=== PATIENT | female | born 1965 | race African-American/Black ===

== ENCOUNTER 2020-09-23 18:19 | Inpatient (IN) | payer OTHER ==
[~2020-09-23] VITALS: Ht 162.6 cm; Wt 53.1 kg
[2020-09-23 18:19] VITALS: BP 161/107
[2020-09-23 18:48] LABS: ABSOLUTE NEUTROPHILS 4.3 thou/uL (1.4-8.2); BASOPHILS 1.3 % (0.0-2.0); EOSINOPHILS 1.1 % (0.0-3.0); HEMOGLOBIN 14.8 gm/dL (12.0-15.0); LYMPHOCYTES 39.5 % (24.0-44.0); MCH 32.4 pg (26.0-34.0); MCHC 34.5 g/dL (28.0-37.0); MCV 93.9 fL (80.0-100.0); MONOCYTES 8.3 % (1.0-8.0); PLATELET COUNT 220 thou/uL (150-400); POLYS 49.8 % (36.0-66.0); RBC 4.58 mil/uL (4.20-5.00); RDW 13.9 % (10.5-14.5); WBC 8.7 thou/uL (4.0-11.0)
[2020-09-23 18:57] LABS: ANION GAP 12 mmol/L (7-16); BUN 16 mg/dL (7-18); CALCIUM 10.5 mg/dL (8.5-10.1); CHLORIDE 103 mmol/L (98-107); CO2 29 mmol/L (21-32); CREATININE 1.1 mg/dL (0.6-1.0); GLUCOSE 106 mg/dL (74-106); POTASSIUM 3.9 mmol/L (3.5-5.1); SODIUM 144 mmol/L (136-145)
[2020-09-23 19:10] LABS: ALBUMIN 4.6 g/dL (3.4-5.0); LIPASE 494 U/L (73-393); PHOSPHORUS 0.6 mg/dL (2.6-4.7); SGOT 18 U/L (15-37); SGPT 19 U/L (14-59); TOTAL BILIRUBIN 0.7 mg/dL (0.2-1.0); TOTAL PROTEIN 9.1 g/dL (6.4-8.2); TROPONIN-I <0.06 ng/mL (<0.06)
[2020-09-23 19:44] LABS: HCO3 25.8 mmol/L (22.0-26.0); PCO2 30.6 mmHg (35.0-45.0); PO2 102.5 mmHg (80.0-100.0); pH 7.544 (7.360-7.450); sO2 98.3 % (92.0-98.0)
[2020-09-23 20:09] LABS: URINE BILIRUBIN NEGATIVE (Negative); URINE BLOOD NEGATIVE (Negative); URINE CLARITY CLEAR; URINE COLOR YELLOW; URINE GLUCOSE-RANDOM* NEGATIVE (Negative); URINE KETONES NEGATIVE (Negative); URINE LEUKOCYTES-REFLEX NEGATIVE (Negative); URINE NITRITE-REFLEX NEGATIVE (Negative); URINE PROTEIN (DIPSTICK) NEGATIVE (Negative); URINE UROBILINOGEN 0.2 E.U./dl (0.2-1.0)
[2020-09-23 20:18] LABS: AMP/METHAMP Negative (Negative); BARBITURATES Negative (Negative); BENZODIAZEPINES Negative (Negative); COCAINE Negative (Negative); METHADONE Negative (Negative); OPIATES Negative (Negative); PCP Negative (Negative)
[2020-09-23 20:28] VITALS: BP 161/107
[2020-09-23 20:51] VITALS: BP 163/105
[2020-09-23 21:43] VITALS: BP 162/88
[2020-09-23] MEDS ORDERED: HYDROCHLOROTHIA25 M1 PO (23:04)
--- NOTE | 2020-09-23 23:58 | NUR ---
PT HAD A CRAMPING EPISODE AROUND 2310HRS. PT WAS HYPERVENTILATING. CRAMPING NOTED IN HANDS AND FEET. 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 VITALS STABLE; PT WAS NSR ON TELE. OT XANAX GIVEN. CRAMPING EPISODE LASTED ABOUT 30 MINS. WILL CONTINUE TO MONITOR.
[2020-09-24] VITALS: BP 126/88
--- NOTE | 2020-09-24 03:42 | NUR ---
ASSUMED CARE OF PT AT 2100HRS FROM ED. PT IS AOX4 AND LETS NEEDS BE KNOWN. PT WAS ORIENTED TO HER ROOM AND THE UNIT. PT WAS ABLE TO ANSWER ALL ADMISSION RELATED QUESTUIONS. PT UNABLE TO SIGN CONSENTS DUE TO NOT HAVING GLASSES. IVF CONTINUED. ASSESSMENT CHARTED. PT DENIED NAUSEA OR SOA. PT WAS ABLE TO GET COMFORABLE AND SLEEP PART OF THE SHIFT. 1X MUSCLE CRAMPING EPISODE THIS SHIFT. VSS AND WILL CONTINUE TO MONITOR.
[2020-09-24 05:47] LABS: CREATININE 0.7 mg/dL (0.6-1.0)
[2020-09-24 05:56] LABS: CALCIUM 8.4 mg/dL (8.5-10.1); CREATININE 0.7 mg/dL (0.6-1.0); PHOSPHORUS 4.6 mg/dL (2.6-4.7)
[2020-09-24 06:04] LABS: CALCIUM 8.4 mg/dL (8.5-10.1)
[2020-09-24 06:20] LABS: POTASSIUM 2.9 mmol/L (3.5-5.1)
[2020-09-24 07:42] VITALS: BP 137/94
--- NOTE | 2020-09-24 13:13 | EKG ---
[address] [place] [address] ELECTROCARDIOGRAM REPORT Name: MC BURCH Cleo Room #: 453-P ADM IN M.R.#: [id number] Admission: 09/23/20 Attend Phys: Javier Zamora Discharge: Date of : 65 Report #: [id number] [facility] ED Test Date: 2020-09-23 Test Time: 18:28:23 Pat Name: MC BURCH Department: Room: 453 Gender: F [employer]: AHMET : 1965 Requested By: Starr Kendall Order Number: [id number] MD: Azam Bueno Measurements Intervals Ortley Rate: 85 P: 48 NE: 121 QRS: -7 QRSD: 106 T: 44 QT: 398 QTc: 474 Interpretive Statements Sinus rhythm Probable left atrial enlargement Left ventricular hypertrophy Compared to ECG 06/19/2005 17:00:25 Left ventricular hypertrophy now present ST (T wave) deviation no longer present Electronically Signed On 09-24-2020 13:13:26 CDT by Azam Bueno [email or web address] <ELECTRONICALLY SIGNED> By: Azam Bueno MD 09/24/20 1313 27 27 Azam Bueno MD /ASHLYN
[2020-09-24 17:23] VITALS: BP 157/97
--- NOTE | 2020-09-24 19:58 | NUR ---
Assumed pt care this am, vs stable. MOved from 453 to 463 as per pt request d/t too much noise from the neighboring room. Pt has a poor appetite, K has resolved. POC followed with no signs or verbalizations of distress noted. Endorsed to the night nurse.
[2020-09-24 20:19] VITALS: BP 125/74
--- NOTE | 2020-09-25 07:31 | NUR ---
Assumed pt care at 1900. A/OX4, VSS. Up ad nasrin w/o distress noted. Denies pain on assessment. No c/o dizziness or N/V. NSR on telemetry. Resting quietly at this time,will continue to monitor pt.
[2020-09-25 07:54] VITALS: BP 173/96
[2020-09-25 09:15] LABS: HEMATOCRIT 40.4 % (37.0-47.0); HEMOGLOBIN 13.8 gm/dL (12.0-15.0); MCH 32.2 pg (26.0-34.0); MCHC 34.1 g/dL (28.0-37.0); MCV 94.3 fL (80.0-100.0); RBC 4.29 mil/uL (4.20-5.00); RDW 13.9 % (10.5-14.5); WBC 6.6 thou/uL (4.0-11.0)
[2020-09-25 09:26] LABS: CREATININE 0.8 mg/dL (0.6-1.0); MAGNESIUM 1.9 mg/dL (1.8-2.4)
--- NOTE | 2020-09-25 10:33 | NUR ---
Received awake on bed. Due medications, given as prescribed able to swallow meds w/o difficulty. On room air. Vital signs stable. On telemetry; no complains and signs of chest pain, crushing sensation and heaviness. Assisted in ADLs. On regular diet- tolerating well; no nausea, no vomiting and no abdominal pain noted. Continent of bowel and bladder, able to go to the toilet. Up ad nasrin. Independent with ADLs. With L AC 1/2NS + 20meq KCL, infusing well at 100cc/hr, infusing well at L AC. Complained of pain, due PRN tylenol given as prescribed. Able to sit out on the chair. To continue monitoring patient.
[2020-09-25 12:27] VITALS: BP 154/86
[2020-09-25] MEDS ORDERED: ZESTRIL10 MG PO (13:31)
[2020-09-25 13:43] VITALS: BP 154/86
== END 2020-09-25 15:06 | disposition home or self-care (01) | DRG 640 ==
LOC: ER 18:19 → EROBS 20:14 → 4W 20:14
PROVIDERS: Emergency Medicine; Internal Medicine; Nurse Practitioner Family; ADMIT Hospitalist; ATTEND Hospitalist
DX: E87.6 Hypokalemia (principal); G93.41 Metabolic encephalopathy; R29.0 Tetany; E83.42 Hypomagnesemia; I10 Essential (primary) hypertension; E87.2 Acidosis; E87.3 Alkalosis; E83.39 Other disorders of phosphorus metabolism; E78.5 Hyperlipidemia, unspecified; K21.9 Gastro-esophageal reflux disease without esophagitis; F17.210 Nicotine dependence, cigarettes, uncomplicated; K58.0 Irritable bowel syndrome with diarrhea; E83.52 Hypercalcemia; Z90.710 Acquired absence of both cervix and uterus; Z88.8 Allergy status to other drugs, medicaments and biological substances
CPT/HCPCS: 10045